=== PATIENT | female | born 1995 | race Caucasian/White ===

== ENCOUNTER 2019-08-02 16:51 | Outpatient (CLI) | payer OTHER, SELFPAY ==
[2019-08-02 17:40] LABS: Influenza Control Valid (Valid)
== END 2019-08-02 16:52 | disposition home or self-care (01) ==
LOC: CHSLAB 16:53
PROVIDERS: PCP Family Medicine; Visit Provider Family Medicine
DX: R05 Cough (principal)
CPT/HCPCS: 87804

== ENCOUNTER 2019-10-20 17:32 | Emergency (ER) | payer OTHER, SELFPAY ==
--- NOTE | ~2019-10-20 | XR_ITS ---
XR foot RT min 3V 10/20/2019 18:08 INDICATION: Right foot pain PROCEDURE: 4 views right foot COMPARISON: No prior studies for comparison. FINDINGS: Fracture, dislocation or subluxation is not identified. Lisfranc joint is intact. The soft tissues appear within normal limits. No foreign bodies are identified. IMPRESSION: 1: NO ACUTE BONE OR JOINT ABNORMALITY IDENTIFIED. Reviewed, dictated and finalized at location A.
[2019-10-20 17:53] VITALS: BP 157/90; PULSE 87; RESP 20; TEMP 36.4; O2SAT 98
--- NOTE | 2019-10-20 17:53 | ED.LOWEXIN ---
HPI - Extremity Injury (Lower) General Chief Complaint: Extremity Injury, Lower Stated Complaint: R foot pain Time Seen by Provider: 10/20/19 17:53 Source: patient Mode of arrival: ambulatory Limitations: no limitations History of Present Illness HPI Narrative: 24-year-old woman with a history of right 5th metatarsal fracture comes in today complaining of bruising, swelling and pain with ambulation on her right foot. She states that several days ago she dropped 4.5 lb of frozen hamburger on her foot and then 2 days ago her son fell on her foot with his knee. She states that she had pain with ambulation. She denies any numbness or tingling. complaint: foot injury Onset (ago): day(s) Injury: Right: foot Type of Injury: blunt Place: home Severity: moderate Relieving factors: NSAID and rest Exacerbating factors: weight bearing and palpation Context: direct blow Associated symptoms: swelling and able to partially bear weight Treatments prior to arrival: NSAIDS Related Data Home Medications Medication Instructions Recorded Confirmed No Home Medications 06/11/19 10/20/19 Allergies Allergy/AdvReac Type Severity Reaction Status Date / Time levofloxacin Allergy Intermediate RASH,SWELLI Verified 02/09/16 21:47 NG Cephalosporins Allergy Mild Itching Verified 06/11/19 15:46 clindamycin Allergy Mild Itching Verified 06/11/19 15:46 codeine Allergy Mild Itching Verified 06/11/19 15:46 diphenhydramine Allergy Mild Itching Verified 06/11/19 15:46 erythromycin base Allergy Mild Itching Verified 06/11/19 15:46 Penicillins Allergy Mild Itching Verified 06/11/19 15:46 red dye Allergy Mild Itching Verified 03/26/19 15:06 Sulfa (Sulfonamide Allergy Mild Itching Verified 06/11/19 15:46 Antibiotics) Review of Systems Constitutional: Constitutional: Denies chills, Denies fever(s) and Denies weakness ENT: Denies dysphagia, Denies nasal congestion and Denies sore throat Cardiovascular: Cardiovascular: Denies chest pain and Denies radiating jaw, neck or arm pain Respiratory: Respiratory: Denies cough, Denies dyspnea and Denies wheezing Musculoskeletal: Musculoskeletal: Reports as per HPI, Reports arthralgias and Reports joint swelling Integumentary/Breasts: Skin/Breast: Denies pruritus, Denies rash and Denies skin ulcer Neurologic: Denies vertigo, Denies dizziness and Denies syncope Hematologic/Lymphatic: Hematologic/Lymphatic: Denies easy bleeding and Denies easy bruising Allergic/Immunologic: Allergic/Immunologic: Denies lip swelling and Denies wheezing [facility] Past Medical History Medical History (Updated 10/20/19 @ 18:39 by Bebo Calzada MD) Liver function test abnormality Surgical History Surgical History (Updated 10/20/19 @ 18:00 by Bebo Calzada MD) H/O colonoscopy H/O tubal ligation History of liver biopsy Social History Social History (Updated 10/20/19 @ 18:01 by Bebo Calzada MD) Smoking status: Never smoker Alcohol intake: never Substance use: never Living arrangements: with family Exam Const: General: no acute distress and alert Nutritional Appearance: obese Orientation/consciousness: patient oriented x3 Skin: General skin exam: normal color, no jaundice and no pallor Rashes: no rashes Neuro: General: patient oriented x3, moves all extremities, no focal motor deficits and CN's II-XI intact bilaterally Speech: normal speech Extrem: General: no clubbing, cyanosis or edema Other: Tenderness and swelling over the 2nd through 5th left distal metatarsals. There is some bruising present. Distal neurovascular exam is intact. Psych: Appearance: grossly normal and well kempt Mental Status: mental status grossly normal Affect: normal affect Attitude: cooperative Thought content: Yes Normal thought content present Course Vital Signs Vital signs: Vital Signs Temperature 36.4 C L 10/20/19 17:53 Pulse Rate 87 10/20/19 17:53 Respiratory Rate 20 10/20/19 1
== END 2019-10-20 18:46 | disposition home or self-care (01) ==
PROVIDERS: Emergency Provider Emergency Medicine; PCP Family Medicine
DX: S90.31XA Contusion of right foot, initial encounter (principal); W20.8XXA Other cause of strike by thrown, projected or falling object, initial encounter
CPT/HCPCS: 73630; 99282; 99283